=== PATIENT | female | born 1990 | race Caucasian/White ===

== ENCOUNTER → 2018-09-24 | Outpatient (CLI) | payer OTHER, SELFPAY ==
[2018-09-25 17:14] LABS: Chlamydia Trachomatis by PCR Negative (Negative); Neisserai gonorrhoeae by PCR Negative (Negative); Probe Check PASS; Sample Adequacy Control PASS; Specimen Processing Control PASS
[2018-09-27 15:26] LABS: HPV Reflexed? NOT INDICATED
== END | disposition home or self-care (01) ==
LOC: LABSPEC 09-25 13:04
PROVIDERS: Visit Provider Obstetrics & Gynecology
DX: Z11.3 Encounter for screening for infections with a predominantly sexual mode of transmission (principal); Z12.4 Encounter for screening for malignant neoplasm of cervix
CPT/HCPCS: 87491; 87591; 87624; 88175; G0145

== ENCOUNTER → 2018-10-10 | Outpatient (CLI) | payer OTHER, SELFPAY ==
[2018-10-10 17:11] LABS: Color, Urine Yellow (Yellow); Glucose, Dipstick Normal (Normal); Ketone-Dipstick 15 mg/dl (Negative); Leukocyte Esterase-Dipstick 500 /ul (Negative); Nitrite-Dipstick Negative (Negative); Occult Blood-Urine 25 /ul (Negative); Protein-Dipstick 15 mg/dl (Negative); Urine Bilirubin Dipstick Negative (Negative); Urine Clarity Sl. Cloudy (Clear); Urine Urobilinogen Normal (Normal)
[2018-10-10 17:13] LABS: Absolute Lymphocyte Count 2.07 X10^3/uL (0.83-4.51); Absolute Neutrophil Count 9.7 X10^3/uL (2.0-7.7); Basophil# 0.03 X10^3/uL; Basophil% 0.2 % (0-1); Eosinophil# 0.07 X10^3/uL; Eosinophils% 0.6 % (0-5); Hemoglobin 12.3 g/dL (12.0-15.0); Lymphocyte # 2.07 X10^3/ul (4.0); Lymphocyte % 16.5 % (19-41); Mean Corp Hgb Conc 34.2 g/dL (32-36); Mean Corpuscular Hgb 31.4 pg (27.0-32.0); Mean Corpuscular Volume 91.8 fL (81-99); Monocyte# 0.64 X10^3/uL; Monocyte% 5.1 % (0-10); NRBC Flagged by Analyzer 0 % (0-5); Neutrophil # 9.69 X10^3/uL (2.7-7.7); Neutrophil % 77.3 % (47-70); Platelet Count 216 K/mm3 (150-450); RBC Distribution Width CV 12.7 % (11.6-14.6); RBC Distribution Width SD 41.8 fl (35.1-43.9); Red Blood Count 3.92 M/mm3 (4.2-5.4); White Blood Count 12.5 K/mm3 (4.4-11.0)
[2018-10-10 18:03] LABS: Thyroid Stim Hormone (TSH) 1.24 uIU/mL (0.358-3.74)
[2018-10-11 01:39] LABS: Prenatal RPR NONREACTIVE (NONREACTIVE)
[2018-10-11 09:06] LABS: HIV - WCH Non-Reactive (Nonreactive); Hepatitis B Surface Antigen Non-Reactive (Nonreactive); Hepatitis C Antibody Non-Reactive (Nonreactive); Rubella IgG 224.3 IU/mL
== END | disposition home or self-care (01) ==
LOC: WOBLAB 16:17
PROVIDERS: Visit Provider Obstetrics & Gynecology
DX: Z34.82 Encounter for supervision of other normal pregnancy, second trimester (principal)
CPT/HCPCS: 36415; 81002; 84443; 85025; 86703; 86762; 86803; 87340

== ENCOUNTER 2019-02-18 05:20 | Inpatient (IN) | payer SELFPAY, OTHER ==
--- NOTE | 2019-02-17 20:04 | PCM.HP.BLA ---
History and Physical Date of Admission: 02/18/19 [facility] [place] ANTEPARTUM RECORD - HISTORY AND PHYSICAL (02/17/2019) Name: KAYLEEN SHAW History of This : This is a 28-year-old 4 para 3 who presents for repeat at 39 weeks gestation. care has otherwise been uneventful. OB Physician: NAZIA [place]'s Physician: Dre martin [place] ...................................................................... : 1990 Age: 28 Address: [address] [place] [address] Phone: (h) [phone] (o) [phone] Insurance Carrier: [facility] [id number] Emergency Contact: ELIZ/MARQUES VELAZCO [phone] ...................................................................... Final JULIA: 02/25/19 By Ultrasound: 20 weeks 2 days PARITY: (G-Total Pregnancies P-Fullterm,Premature,Induced AB,Spont AB, Ectopics, Multiple,Living) JULIA CONFIRMATION: By LMP: 05/21/18 Final JULIA: 02/25/19 OB PROBLEM LIST: FOB's Brother shortly after with multiple anomalies Trisomy 13 Prior C sections plan repeat C/S with tubal Too late for MSAFP (would have declined regardess), CF testing declined ALLERGIES: NKDA MEDICATIONS: Macrobid 100 mg capsule One pill by mouth twice a day x 7 days 27-0.8 mg tablet One pill by mouth once a day SOCIAL HISTORY: Smoking - Never Alcohol Use - None Diet - no special diet Lifestyle - low stress lifestyle and Exercise - active Employer - [employer] Job Description - Illicit Drug Use - None Sexual Activity - Residence - lives with Place of - [facility], [place] Spouse-Sig Other Name - Antonio Shaw Spouse-Sig Other Occupation - [employer] Children Name(s) - Mike (13), Salome (15) Rebecca(17) PRIOR DELIVERY HISTORY DEL DATE GEST LAB WT LB WT OZ TYPE ANES LABOR TX 05 Nov 01 39 0 7 5 C-Sec Epidural No July 03 39 0 7 5 C-Sec Spinal No Apr 07 39 0 7 12 C-Sec Spinal No ANTEPARTUM FLOW CHART VISIT GE RTC FU F F WY U U DATE WK MD WKS HT PN HR M SS BP ED WT WY GL D EF ST __ ____ ___ __ __ ___ __ __ __ ___ __ __ __ ___ __ 26 Jan JMW 3 38 + + 112/86 sl 248 tr - 17 Jan JMW 1 39 + + 118/66 sl 234 tr - Jan JMW 1 36 + + 112/72 sl 245 - - Dec JMW 2 34 V + + 124/72 sl 242 tr - 05 Dec JMW 3 31 + + 102/64 tr 238 tr - Dec 16 JMW 3 28 + + 120/70 sl 231 - - Nov 12 JMW 4 24 + + 114/68 0 234 tr - Oct 08 JMW 4 20 + + 118/72 tr 232 tr - ANTEPARTUM NOTE(S): Feb 13 2019: feeling well. Feb 04 2019: Signed & BTO,Good FM,Feeling Well Jan 28 2019: Good FM,Feeling Well Jan 14 2019: see progress note, BPP 09/26Dec 24 2019: Feeling Well,Good FM Dec 03 2018: Doing well,1hrGTT CBC drawn Nov 05 2018: Doing Well, Glucola Given with instructions Oct 10 2018: Sono,NOB and PNV Today,Nausea Better COMPREHENSIVE ANTEPARTUM NOTE(S): Jan 28 2019: Kayleen presents here today for PNV and declines LARC form as she plans to have BTO with her Repeat as she reports she spoke with JW about this last visit and plans to mention same today. WILI Jan 14 2019: Kayleen presents for her PNV. Pt is reporting +FM and only slight intermittent swelling in her extremities. Pt relates she noted some sharp pain at her incision site on Fri evening 12/27 and by Sat the pain was very sharp/searing. She sts It felt like I had just had my done. She rested and continued to note +FM and sts after 48hrs it had significantly improved. She no longer feels pain in that area but sts it does feel like the baby dropped. She noted no spotting or loss of fluid. JT Dec 04 2018: Hgb 11.7 and glucola 105. EB Oct 10 2018: Kayleen is here for her NOB visit at 20 w 2 d, she is a with an JULIA of 02/25/2019. She and her , Antonio, have three children at home, all of who were delivered by C/S. Repeat C/S is planned, she prefers to deliver at [facility], but is okay with delivering at [facility]. She will formula feed baby. Past history updated. Kayleen is an established pt, and is aware of office practice patterns, including labs that will be collected today. Emergencies/danger signs to report, contacting the office after hours, round ligament pain, reporting s/s of a UTI, and common OTC medications approved/not approved for use during reviewed. She states that she is feeling very well at his time, and that the N/V that she had been experiencing has resolved. She is a life long non-smoker, and denies use of drugs or ETOH. She takes an tolerates well an OTC vitamin. Genetic Screening form completed, her had a brother born with Trisomy and other anomalies who not long after , Too late for MSAFP (she states that she would have declined regardless), and CF testing declined, consent signed as such. Water and dietary needs for reviewed, including caloric needs, recommended weight gain, limiting empty calories, and limiting caffeine to one cup a day. Printed guide for food safety during provided with review. physical activity recommendation, Kegel exercises, and lifting restrictions reviewed. Kayleen state sthat she understands all information provided during NOB visit, and has no questions following same. To [facility] draw station for labs. AW New Sep 27 2018: GC and chlamydia NEG EB Sep 24 2019: Kayleen presents here today with spouse(Abbie) for Missed Menses appointment. 27 y.o. G 4 P 3 non-smoker with regular menses and LMP of 05-21-18 lasting her average of 5 days. UPT is positive today in our Office. Presents at 19 weeks with questionable movement and approximate JULIA of 02-25-19 with plans for Repeat at [facility] (if possible). Denies spotting/bleeding thus far in . Reports having periodic nausea and denies other concerns at this time. Medication and Allergy lists up-dated. Educational Materials given. History of normal pap screenings in 2013 with last in 2015. WILI Sep 24 2019: ok REVIEW OF SYSTEMS: GENERAL - Denies fever, or chills SKIN - Denies rash, new skin lesions, or change in moles EYES - Denies blurred vision, or change in visual acuity EARS - Denies ear pain, or difficulty hearing NOSE - Denies nasal congestion, discharge, or bleeding MOUTH - Denies sore throat, or difficulty swallowing NECK - Denies pain or swelling RESPIRATORY - Denies shortness of breath, cough, wheezing CARDIOVASCULAR - Denies palpitations, chest pain, orthopnea, PND, peripheral edema, syncope or claudication GASTROINTESTINAL - Denies nausea, vomiting, diarrhea, constipation, Denies abdominal pain, melena and or bright red blood GENITOURINARY - Denies dysuria, frequency of urination, urgency, or hesitancy MUSCULOSKELETAL - Denies joint or muscle pain, or back pain NEUROLOGICAL - Denies localized numbness, weakness, or tingling PSYCHIATRIC - Denies depression, anxiety, substance abuse or suicide attempts ENDOCRINE - Denies heat or cold intolerance, weight loss or gain, increasing thirst HEMATO-IMMUNOLOGIC - Denies easy bruising, bleeding, oral ulcerations or recurrent infections GENETICS SCREENING: Age 35+ years: No Thalassemia: No Neural Tube Defect: No Down Syndrome: No TOMAS-SACHS: No Sickle Cell Disease: No Hemophilia: No Musc. Dystrophy: No Cystic Fibrosis: No-declines screening Xavier Chorea: No Mental Retardation: No Fragile X: No Other genetic: No Other defects: No SABs/still births: No Drugs since LMP: No INFECTION HISTORY: High risk AIDS: No High risk Hepatitis: No Exposed to TB: No Exposed to Herpes: No Rash/viral illness since LMP: No History of STD: No MENSTRUAL HISTORY: *Menses Amount/Duration: 5 daysMenses Regularity: RegularFrequency: monthlyMenarche (Age Onset): 12* PAST SUMMARY: PARITY: 1. Total Pregnancies............ 4 2. Full Term Pregnancies........ 3 3. Premature.................... 0 4. Abortions - Induced.......... 0 5. Abortions - Spontaneous...... 0 6. Ectopics..................... 0 7. Multiple Births.............. 0 8. Living Children.............. 3 PAST #1: Date of :.................. 10/24/12 Gestation Weeks:................ 39 Length of labor(hours):......... 0 Sex:............................ M Weight-lbs:............... 7 Weight-oz:................ 5 Type of Delivery:............... C-Sect Type of Anesthesia:............. Epidural Place of Delivery:.............. [facility] Treatment of Labor?:.... No Comment: [place] PAST #2: Date of :.................. 07/09/14 Gestation Weeks:................ 39 Length of labor(hours):......... 0 Sex:............................ F Weight-lbs:............... 7 Weight-oz:................ 5 Type of Delivery:............... C-Sect Type of Anesthesia:............. Spinal Place of Delivery:.............. [facility] Treatment of Labor?:.... No Comment: PAST #3: Date of :.................. 04/12/16 Gestation Weeks:................ 39 Length of labor(hours):......... 0 Sex:............................ F Weight-lbs:............... 7 Weight-oz:................ 12 Type of Delivery:............... C-Sect Type of Anesthesia:............. Spinal Place of Delivery:.............. [facility] Treatment of Labor?:.... No Comment: PHYSICAL EXAMINATION General Appearence: 28 yo female in no acute distress Vital Signs: AF, VSS Heart: RRR without rubs or gallops Lungs: CTA x 2 Breasts: deferred Abdomen: gravid Pelvis: Cervix: Presentation: cephalic Station: Fetus: Size: AGA Movement: present Heart: present Labs for : KAYLEEN SHAW since 05/31/2018 ORDER DATEIN DESCRIPTION VALUE UNITS RANGE A+ COMMENT GLUCOSE CHALLENGE 50GM 1 HOUR 12/03/18 NOTE Original Ordering Provider: ABBIE ROBB GLUCOSE CHALLENGE 50GM 1 HOUR GLUCOSE CHALLENGE 50 GMS 1 HOUR GLUCOSE 1HR 105 mg/dl 70 - 140 Reviewed by JENNA CBC + DIFF 12/03/18 NOTE Original Ordering Provider: ABBIE ROBB CBC + DIFF CBC-COMPLETE BLOOD COUNT WBC 12.9 x 10EE3/UL 4.5 - 10.8 H RBC 3.79 x 10EE6/UL 4.10 - 5.30 L HEMOGLOBIN 11.7 g/dl 12.0 - 16.0 L HEMATOCRIT 34.9 % 34.0 - 46.0 MCV 92 fl 80 - 99 MCH 31 pg 27 - 33 MCHC 34 X10 3 32 - 36 RDW/CV 13.3 % 12.0 - 15.6 PLATELET 201 x10EE3/UL 150 - 450 MPV 10.8 fl 6.6 - 10.5 H AUTOMATED DIFFERENTIAL NEUT % 82.0 % 46.0 - 76.0 H LYMPH % 10.9 % 20.0 - 45.0 L MONOS % 5.6 % 0.0 - 10.0 EO % 0.8 % 0.0 - 7.0 BASO % 0.7 % 0.0 - 2.0 LYMPH # 1.40 x10EE3/UL 0.80 - 2.80 NEUT # 10.60 x10EE3/UL 1.50 - 7.10 H MONO # 0.70 x10EE3/UL 0.20 - 1.00 EO # 0.10 x10EE3/UL 0.00 - 0.50 BASO # 0.10 x10EE3/UL 0.00 - 0.10 MANUAL DIFF N/A MORPHOLOGY N/A Reviewed by JENNA HEPATITIS C ANTIBODY 10/10/18 NOTE Original Ordering Provider: Abbie Robb HEPATITIS C AB Non-Reactive Nonreactive Non Reactive: < 0.8 Equivocal: >/= 0.8 to < 1.0 Reactive: >/= 1.0 The CDC recommends that a reactive/equivocal HCV antibody result be followed up by the HCV Nucleic Acid Amplification test (088806) Reviewed by ABBIE HEPATITIS B SURFACE ANTIGEN 10/10/18 NOTE Original Ordering Provider: Abbie Robb HEPB SURFACE AG Non-Reactive Nonreactive Reviewed by ABBIE HIV - [facility] 10/10/18 NOTE Original Ordering Provider: Abbie Robb HIV - [facility] Non-Reactive Nonreactive Reviewed by ABBIE RUBELLA IGG 10/10/18 NOTE Original Ordering Provider: Abbie Robb RUBELLA IGG 224.3 IU/mL Antibody results Interpretation of Immune Status < 5 IU/ml Presumed Non-immune 5 - < 10 IU/ml Equivocal > or = 10 IU/ml Presumed Immune Reviewed by ABBIE RPR 10/10/18 NOTE Original Ordering Provider: Abbie Robb RPR NONREACTIVE NONREACTIVE Reviewed by ABBIE THYROID STIM HORMONE (TSH) 10/10/18 NOTE Original Ordering Provider: Abbie Robb TSH 1.24 uIU/mL 0.358-3.74 Reviewed by ABBIE T AND S-NO CHARGE W/PNP 10/10/18 Reason for Type AND Screen/Red Cells: Surgery? [facility]~[address] [place], [address]~ BLOOD TYPE GEL A POSITIVE N AB SCREEN GEL NEGATIVE N Reviewed by ABBIE URINALYSIS, ROUTINE (DIPSTICK) 10/10/18 NOTE Original Ordering Provider: Abbie Robb COLOR Yellow Yellow CLARITY Sl. Cloudy Clear GLUCOSE, UR Normal mg/dl Normal BILIRUBIN URINE Negative mg/dL Negative KETONE UR 15 mg/dl Negative H SP.GR. DIPSTX 1.030 1.002-1.030 PH UR 5.0 5.0 - 8.0 PROT DIPSTX 15 mg/dl Negative H UROBILI Normal mg/dl Normal NITRITE UR Negative Negative OCCULT BLOOD-UR 25 /ul Negative H LEUK ESTERASE 500 /ul Negative H Reviewed by ABBIE CBC W/DIFF, AUTOMATED 10/10/18 NOTE Original Ordering Provider: Abbie Robb WBC 12.5 K/mm3 4.4-11.0 H RBC 3.92 M/mm3 4.2-5.4 L HGB 12.3 g/dL 12.0-15.0 HCT 36.0 % 37-47 L MCV 91.8 fL 81-99 MCH 31.4 pg 27.0-32.0 MCHC 34.2 g/dL 32-36 RDW CV 12.7 % 11.6-14.6 RDW SD 41.8 fl 35.1-43.9 PLT 216 K/mm3 150-450 MPV 12.0 fl 6.2-12.0 NEUT% 77.3 % 47-70 H LY% 16.5 % 19-41 L MONO% 5.1 % 0-10 EO% 0.6 % 0-5 BASO% 0.2 % 0-1 IM GRAN % 0.300 % 0.0-0.9 IG% - Immature Granulocytes (promyelocytes, myelocytes and metamyelocytes) > 1% indicates that a LEFT SHIFT is Present. ABSOLUTE NEUT 9.7 X10 3/uL 2.0-7.7 H ABSOLUTE LYMPH 2.07 X10 3/uL 0.83-4.51 NRBC, FLAGGED 0 % 0-5 Reviewed by ABBIE MENDIETA IG W/REFLEX HR HPV APTIMA 09/24/18 NOTE Original Ordering Provider: Abbie Robb DIAGN . NEGATIVE FOR INTRAEPITHELIAL LESION OR MALIGNANCY. ADEQ . Satisfactory for evaluation. Endocervical and/or squamous metaplastic cells (endocervical component) are present. PERFORM . Kristi Vega, Dispute Coordinator (ASCP) TEST METHOD . This liquid based ThinPrep(R) pap test was screened with the use of an image guided system. COMM . . PAPSMR . The Pap smear is a screening test designed to aid in the detection of premalignant and malignant conditions of the uterine cervix. It is not a diagnostic procedure and should not be used as the sole means of detecting cervical cancer. Both false-positive and false-negative reports do occur. HPV RFLX . The HPV DNA reflex criteria were not met with this specimen result therefore, no HPV testing was performed. Performed at: [address] [id number] Pathology Technologist: Candice Reid MD, Phone: [phone] Reviewed by JENNA BROOKS/SHYAM [facility] BY PCR 09/24/18 NOTE Original Ordering Provider: [facility] Robb [facility] PCR Negative Negative NG BY PCR Negative Negative Reviewed by JENNA Impression/Plan: 39-week intrauterine for repeat . Discussed risks, benefits, alternatives and all questions were answered. Preparations in progress for delivery.
[2019-02-18] VITALS (21 sets, daily range): BP systolic 101–138; BP diastolic 58–81; PULSE 60–86; RESP 15–18; TEMP 36.2–36.8; O2SAT 96–100; BMI 42.2
[2019-02-18] MEDS: Lactated Ringers 1,000 ML 999 ML IV (05:45)
[2019-02-18 06:03] LABS: Absolute Lymphocyte Count 1.65 X10^3/uL (0.83-4.51); Absolute Neutrophil Count 8.9 X10^3/uL (2.0-7.7); Basophil# 0.04 X10^3/uL; Basophil% 0.3 % (0-1); Eosinophil# 0.08 X10^3/uL; Eosinophils% 0.7 % (0-5); Hemoglobin 12.1 g/dL (12.0-15.0); Lymphocyte # 1.65 X10^3/ul (4.0); Lymphocyte % 14.3 % (19-41); Mean Corp Hgb Conc 34.6 g/dL (32-36); Mean Corpuscular Hgb 32.1 pg (27.0-32.0); Mean Corpuscular Volume 92.8 fL (81-99); Mean Platelet Vol. 12.8 fl (6.2-12.0); Monocyte% 6.9 % (0-10); NRBC Flagged by Analyzer 0 % (0-5); Neutrophil % 77.3 % (47-70); Platelet Count 174 K/mm3 (150-450); RBC Distribution Width CV 13.8 % (11.6-14.6); Red Blood Count 3.77 M/mm3 (4.2-5.4); White Blood Count 11.5 K/mm3 (4.4-11.0)
[2019-02-18] MEDS: Lactated Ringers 1,000 ML 150 ML IV (06:40)
[2019-02-18] MEDS: Sodium Citrate/Citric Acid 30 ML UDC PO (07:02)
[2019-02-18] MEDS: Cefazolin 2 GM in 0.9% Normal Saline 100 ML IV (07:21)
--- NOTE | 2019-02-18 08:48 | OP.PCM_ITS ---
Delivery Classification: Scheduled Final JULIA: 02/25/19 Gestational age: 39 Weeks and 0 Days manager marketing communications: Pamela Olson Type of Anesthesia:: Spinal - With Duramorph Implants Used: None Date of Procedure: 02/18/19 Pre-Operative Diagnosis: Term Intrauterine with 4 Prior Sections and Desires Permanent Sterilization Post-Operative Diagnosis: Term Intrauterine with 4 Prior Sections and Desires Permanent Sterilization Description of Procedure: Surgeon: Armani Resendiz MD, FACOG Anesthesia: Gulshan Marr MD Procedure: Repeat Low Transverse Cervical Caesarean Section And Bilateral Tubal Occlusion with Filshie Clips Findings: Viable female with Apgars of 9/9 in occiput anterior presentation with clear amniotic fluid and normal three-vessel placenta. Indication: This is a 28-year-old who presents for her fourth at 39 weeks gestation. care has otherwise been uneventful except she also desires permanent sterilization. The patient has been counseled regarding the risk and indications of this procedure including the possibility of bleeding infection and injury to surrounding structures such as bowel bladder. She also understands the permanent nature of her tubal, the failure rate of 1 to 2%, and the availability of other nonpermanent control options. All questions were answered. Procedure: Patient was taken to the operating room where after spinal anesthesia was placed, the patient was prepped and draped in usual sterile fashion and a Poole catheter was placed. The abdomen was entered through the patient's prior Pfannenstiel incision and peritoneum was entered bluntly. After developing a bladder flap on the lower uterine segment a low transverse incision was made on the uterus and head was easily delivered onto the operative field the nose mouth and oropharynx were bulb suctioned. Subsequently a viable female was born with Apgars of 9/9. The infant was noted to cry move all extremities vigorously on the operative field. The umbilical cord was doubly clamped and ligated and infant handed to the nursery personnel who were present for the delivery. Placenta was delivered and noted to be 3 vessels and normal. Uterus was exteriorized and remaining placental tissue was removed. The uterus was then closed in 2 layers first with running locked 0 Vicryl suture followed by a second imbricating layer with 0 Vicryl suture. 0 Vicryl suture was then used in a horizontal mattress interrupted fashion to affect final hemostasis of the uterine incision line. Normal fallopian tubes and ovaries were visualized and a Filshie clip was placed on each fallopian tube approximately 2 cm from the uterine fundus. The uterus was returned to the pelvis. Hemostasis was noted and rectus abdominis muscles were reapproximated in the midline with interrupted Number 0 Vicryl suture in a horizontal mattress fashion. Fascia was closed with running Number 1 PDS Strata fix suture. Subcutaneous tissue was irrigated with copious amounts of saline solution and then closed with running 3-0 Vicryl suture. Skin was closed with 4-0 monocryl suture in a running subcuticular fashion. Steri strips and Mepilex were placed across the incision. The patient tolerated the procedure well and was taken to the recovery room in satisfactory condition. Sponge, needle, and instrument counts were all reportedly correct. EBL was less than 500 cc. Ancef 2 gms IV was given prior to the procedure. Spicemen to Pathology: None Complications: None Amniotic Fluid Description: Clear Placenta Disposition: [facility] Specimen(s) sent to pathology: None Drain: Poole to straight drain Fluids Replaced: Crystalloid Cord Entanglement: None Cord Vessel Description: 3 Vessels Esitmated Blood Loss (ml): 500 cc Gender: Female (1 minute): 9 (5 minute): 9 Antibiotic Given: Ancef 2 grams IV x1 Pt instructed on risks of surgery: Bleeding, Infection, Failure Rate of 1 to 2%, Injury to surrounding structure(s) including bowel and bladder, Availability of other non-permanent control options - Admit VTE Documentation VTE Present on Admission: Yes VTE Mechan Device Prophylaxis: SCD's VTE Pharm Prophylaxis ordered?: Yes
--- NOTE | 2019-02-18 08:55 | PCM.DCCSEC ---
Discharge Diet: No Restrictions Discharge Activity: May not drive while taking narcotic pain medications., May Shower, May Take a Tub Bath May resume sexual activity in: 4-6 weeks Lifting Restrictions: 20 pounds Additional Activity Instructions:: Nothing in the vagina for 4-6 weeks. You may return to work/school in 6 weeks. Call your doctor if your incision/area has: Continuous Slow Oozing, Sudden Increased Bleeding, Increased Pain/ Swelling, Increased Redness, Foul Smelling Discharge Call your doctor if you observe: Fever of 101 or Higher Additional Instructions: If you experience any of the following, contact your healthcare provider. Bleeding that soaks a pad every hour for 2 hours Unrelieved incision or abdominal pain Swelling, redness, discharge or bleeding from your incision or episiotomy site Your incision begins to separate Problems urinating (including inability to urinate or burning while urinating). Visual changes Severe headache Flu-like symptoms Pain or redness in one of both of your breasts Pain, warmth, tenderness or swelling in your legs, especially the calf area Frequent nausea and vomiting Symptoms of depression or anxiety If you experience any of the following, call 911 or go to the nearest Emergency Room. Chest pain Problems breathing Seizure activity Partial or complete paralysis of a body part, slurred speech, weakness or drooping of the face, or a sudden inability to walk or hold your balance Allergies/Adverse Reactions: Allergies No Known Allergies Allergy (Verified 02/18/19 05:40) Medications to take at Discharge Docusate Sodium [Colace] 100 mg PO BID PRN PRN #60 cap 02/18/19 Oxycodone [Oxyir] 5 mg PO Q6H PRN PRN 7 Days #20 tab 02/18/19 Prenatabs FA 1 tab PO DAILY 02/18/19 The following prescriptions were given: Docusate Sodium [Colace] 100 mg PO BID PRN PRN #60 cap PRN Reason: Constipation Transmission Status: Sent to [facility] Oxycodone [Oxyir] 5 mg PO Q6H PRN PRN 7 Days #20 tab PRN Reason: Pain Score 6-10/10 Transmission Status: Sent to [facility] Follow-Up: Call to make an appointment with your doctor for an incision check in 1-2 weeks. You will also need a 6 week post- follow up appointment. Test results from this visit will be discussed in further detail at your follow-up appointment, if applicable. Please Follow Up With: Armani Resendiz MD - [phone] When: Call to make an appointment for an incision check in 2 weeks. Primary Care Physician: Kaylyn Erickson NP-C [Primary Care Provider] -
[2019-02-18] MEDS: Oxytocin 30 units/NS 500 ml 30 UNITS/500 ML IV.SOLN 167 UNITS IV (09:00)
[2019-02-18] MEDS: Methylergonovine 0.2 MG/ML Ampul IM (09:28)
--- NOTE | 2019-02-18 10:17 | NURSING ---
[id number] Several clots passed with fundal checks. Pt reporting feeling good during this time and VS WNL. Uterus shifted slightly to right. Two peripads weighed for total weight 204 gm. Reported to Shannon HOYT in office. Plan to hold 1000 dose scheduled heparin until 1100 and reassess at that time.
[2019-02-18] MEDS: Heparin Injection (Vial) 5,000 UNIT/ML VIAL 5000 UNIT SC (11:07)
[2019-02-18] MEDS: Lactated Ringers 1,000 ML 100 ML IV ×2 (12:14→21:43)
[2019-02-18] MEDS: Ketorolac 30 MG/ML Syringe IV ×2 (13:54→20:44)
[2019-02-18] MEDS: 0.9% Saline Lock 10 ML Syringe IV (13:55)
[2019-02-18] MEDS: Cefazolin 1 GM/50 ML BAG IV ×2 (15:13→23:05)
--- NOTE | 2019-02-18 18:07 | NURSING ---
1745 returned to bed
[2019-02-18] MEDS: Enoxaparin 40 MG/0.4 ML Syringe SC (22:10)
[2019-02-19] VITALS (7 sets, daily range): BP systolic 107–139; BP diastolic 62–79; PULSE 74–85; RESP 16–18; TEMP 36.6–37.4; O2SAT 96–100
[2019-02-19] MEDS: Ketorolac 30 MG/ML Syringe IV ×4 (01:55→20:01)
[2019-02-19 06:00] LABS: Hematocrit 32.5 % (37-47); Hemoglobin 11.1 g/dL (12.0-15.0); Mean Corp Hgb Conc 34.2 g/dL (32-36); Mean Corpuscular Hgb 31.8 pg (27.0-32.0); Mean Corpuscular Volume 93.1 fL (81-99); Mean Platelet Vol. 12.7 fl (6.2-12.0); Platelet Count 135 K/mm3 (150-450); RBC Distribution Width CV 13.8 % (11.6-14.6); Red Blood Count 3.49 M/mm3 (4.2-5.4); White Blood Count 8.7 K/mm3 (4.4-11.0)
[2019-02-19] MEDS: 0.9% Saline Lock 10 ML Syringe IV ×3 (07:59→20:01)
--- NOTE | 2019-02-19 10:19 | PCM.PN.OB ---
Subjective: Feels good to be out of bed walking around. +Flatus. Bottle feeding female well. No questions or concerns with 4th child/. Objective: VSS. Fundus u/1. Csection dressing CDI, will remove tomorrow. - Physical Exam Vitals/I&O's: Vital Signs Temp Pulse Resp BP Pulse Ox 98.2 F 78 16 110/78 98 02/19/19 08:04 02/19/19 08:04 02/19/19 08:04 02/19/19 08:04 02/19/19 08:04 Oxygen Delivery Method Room Air Weight: 111.584 kg Body Mass Index (BMI) 42.2 Intake and Output for Last 24 Hours 02/17/19 02/18/19 02/19/19 23:59 23:59 23:59 Intake Total 3311.58 / 3311.58 725 / 725 Output Total 1754 / 1754 600 / 600 Balance 1557.58 / 1557.58 125 / 125 General: Alert, Oriented x3, Cooperative HEENT: Atraumatic, PERRLA, EOMI, Normocephalic Neck: Supple, No JVD, Negative Carotid Bruits Lungs: Clear to auscultation, Normal air movement Cardiovascular: Regular rate, No murmurs Abdomen: Bowel Sounds Present, Soft, Non Tender, Passing Flatus, - - incision CDI Extremities: No edema, Capillary Refill Less than 3 Seconds Skin: No rashes, No breakdown Musculoskeletal: No Tenderness to Palpation of Joints or Extremities Neurological: Cranial nerves II-XII grossly intact Psych/Mental Status: Normal Affect, Appropriate Laboratory Results 02/19/19 05:05: WBC 8.7, RBC 3.49 L, Hgb 11.1 L, Hct 32.5 L, MCV 93.1, MCH 31.8, MCHC 34.2, RDW Std Deviation 46.0 H, RDW Coeff of Kaycee 13.8, Plt Count 135 L, MPV 12.7 H Current Medications Acetaminophen (Tylenol) 1,000 mg PO Q8H PRN PRN Reason: Pain Score 1-3/10 Bisacodyl (Dulcolax) 10 mg RECTAL UD PRN PRN Reason: If no BM Enoxaparin Sodium (Lovenox) 40 mg SC DAILY@2100 FREDDY Last Admin: 02/18/19 22:10 Dose: 40 mg Documented by: Hydrocortisone (Hytone) 1 applic TOPICAL TID PRN PRN; Protocol PRN Reason: Discomfort Naloxone HCl 4 mg/ Dextrose 504 mls @ 0 mls/hr IV .Q0M PRN; Protocol PRN Reason: To maintain Resp. rate >10 Ibuprofen (Motrin) 600 mg PO Q6H PRN PRN PRN Reason: Pain Score 1-3/10 Ketorolac Tromethamine (Toradol) 30 mg IV Q6H FREDDY Stop: 02/20/19 08:01 Last Admin: 02/19/19 07:59 Dose: 30 mg Documented by: Methylergonovine Maleate (Methergine) 0.2 mg IM X1 PRN PRN Reason: Uterine Atony Last Admin: 02/18/19 09:28 Dose: 0.2 mg Documented by: Naloxone HCl (Narcan) 0.02 mg IV Q1M PRN PRN Reason: RR <10 and pt unresponsive Ondansetron HCl (Zofran) 4 mg IV Q4H PRN PRN PRN Reason: Nausea Oxycodone HCl (Oxyir) 5 - 10 mg PO Q4H PRN PRN PRN Reason: Pain Score 4-10/10 Prochlorperazine Edisylate (Compazine Iv) 10 mg IV Q6H PRN PRN PRN Reason: NAUSEA Senna/Docusate Sodium (Senokot-S, Dianelys-Colace) 0 tablet PO DAILY PRN PRN Reason: Constipation Simethicone (Mylicon) 80 mg PO PCHS PRN PRN Reason: Indigestion/stomach pain Sodium Chloride () 5 - 15 ml IV UD PRN PRN Reason: SALINE FLUSH Last Admin: 02/19/19 07:59 Dose: 10 ml Documented by: Medical Necessity - Tobacco Use Smoking Status: Never smoker Assessment/Plan A: POD #1 from repeat Fundus u/1 Incision dressing CDI VSS Bottle feeding female P: Normal course To switch to oral pain medication today Wants to discharge tomorrow by noon
[2019-02-19] MEDS: Enoxaparin 40 MG/0.4 ML Syringe SC (20:01)
[2019-02-20] MEDS: Ketorolac 30 MG/ML Syringe IV ×2 (02:17→08:28)
[2019-02-20 02:18] VITALS: BP 119/78; PULSE 79; RESP 16; TEMP 36.6
[2019-02-20] MEDS: 0.9% Saline Lock 10 ML Syringe IV ×2 (02:18→08:29)
--- NOTE | 2019-02-20 07:33 | PCM.PN.BLA ---
Progress Note Social visit with patient on POD #2. States she is doing well bottle feeding female and ready to go home. Understands Dr. Resendiz will round later this AM to discharge. Requesting paper prescriptions which were printed for his signature. Has no other concerns at this time. Already has 2 week incision check appointment scheduled.
[2019-02-20 08:12] VITALS: BP 109/72; PULSE 72; RESP 18; TEMP 36.4; O2SAT 97
== END 2019-02-20 12:15 | disposition home or self-care (01) | DRG 785 ==
PROVIDERS: Admitting Provider Obstetrics & Gynecology; Family Provider Nurse Practitioner Family; PCP Nurse Practitioner Family; Referring Provider Obstetrics & Gynecology; Visit Provider Obstetrics & Gynecology
PROC: 10D00Z1 Extraction of Products of Conception, Low, Open Approach (ICD-10-PCS; CPT 59514; principal; 2019-02-18 07:15)
DX: O34.211 Maternal care for low transverse scar from previous cesarean delivery (principal); Z30.2 Encounter for sterilization; Z37.0 Single live birth; Z3A.39 39 weeks gestation of pregnancy
CPT/HCPCS: 85025; 85027; 86850; 86900; 86901; 99218; 99251; J7120; A4216; G0378; G0463; J2405

== ENCOUNTER → 2020-05-19 09:39 | Outpatient (CLI) | payer OTHER, SELFPAY ==
[2019-02-18 05:37] VITALS: BMI 42.2
[2020-05-21 20:33] LABS: HPV Reflexed? NOT INDICATED
== END ==
PROVIDERS: PCP Nurse Practitioner Family; Visit Provider Obstetrics & Gynecology
DX: Z12.4 Encounter for screening for malignant neoplasm of cervix (principal)
CPT/HCPCS: 88175; G0145